=== PATIENT | male | born 1930 | race Caucasian/White ===

== ENCOUNTER 2016-12-30 08:36 | Day surgery (SDC) | payer MEDICARE ==
--- NOTE | 2016-12-25 15:08 | PCM.ANEPRE ---
Anesthesia Pre-Op Review Reason for Review: FYI- ef 25%, platelet count 62 Anesthesia Recommendations: Proceed with Procedure Additional Comments This patient was put on hold in October until evaluation done by booth cashier given his history of an abnormal Myocardial pefusion Study on 11/07/16 as well as an EF of 25% from cardiomyopathy. Indeed, the patient was seen by Dr Espinoza on October, who recommended that the patient's TURBT proceed without angiogram. Of note, the patient was given an anesthetic in 2014, presumably with an LMA that he tolerated well. Panfilo Manzanares MD Dec 25, 2016 15:08
[2016-12-30] VITALS (13 sets, daily range): BP systolic 89–135; BP diastolic 41–66; PULSE 60–70; RESP 8–18; O2SAT 90–95
[~2016-12-30] VITALS: Ht 165.1 cm; Wt 91.7 kg
--- NOTE | 2016-12-30 06:52 | PCM.HPANE ---
Patient Data Surgeon Admitting Provider: Attending Provider:Nelson Bustamante MD Primary Care Physician:Tanvir Sherman MD Other Provider:[facility] Reason for Visit Bladder Cancer Ht/WT & BMI Height (Feet): 5 Height (Inches): 5.00 Weight (Kilograms): 89.810 Body Mass Index 32.00 Allergies Coded Allergies: Sulfa (Sulfonamide Antibiotics) (Verified Allergy, Severe, increased temp , swollen legs, fatigue, 11/14/16) nitrofurantoin (Verified Allergy, Unknown, Pyrexia, 11/14/16) High Fever Past Anesthesia History Anesthesia History: Denies:: Abnormal Airway, Anesthesia Reactions, Difficult Intubation, Fam Anesthesia Reaction, Fam Malignant Hypertherm, Malignant Hyperthermia Diabetes History Hx Diabetes?: No MRSA MRSA: No Medications Blood Thinner: Aspirin, Plavix Hypertension Medication: Yes Home Meds Incl Beta Trini: Yes Reported Medications Aspirin 81 Mg Djkblv68 Mg PO DAILY Ref 0 11/14/16 Clopidogrel 75 Mg Hecoxo63 Mg PO DAILY Ref 0 11/14/16 Gabapentin 100 Mg [id number] Mg PO BID 30 Days Ref 0 11/14/16 Metoprolol Tartrate 25 Mg Rxowoy54 Mg PO BID 30 Days Ref 0 11/14/16 Potassium Chloride ER 8 Meq Tablet8 Meq PO BID Ref 0 TAKE WITH FOOD 11/14/16 Furosemide 20 Mg Tab20 Mg PO BID 30 Days Ref 0 11/14/16 Levothyroxine 200 Mcg Wszuwf706 Mcg PO DAILY Ref 0 11/14/16 Benazepril 10 Mg Tablet5 Mg PO DAILY 11/14/16 Ranitidine 300 Mg Dhzmarp647 Mg PO DAILY Ref 0 11/14/[address] 40 Mg Tablet.dr40 Mg PO HS Ref 0 11/14/16 Tamsulosin (Flomax)0.4 Mg Capsule0.4 Mg PO HS Ref 0 11/14/16 Trazodone 50 Mg Ykatdx13 Mg PO HS Ref 0 11/14/16 Rosuvastatin Calcium (Crestor)20 Mg Gjvczl63 Mg PO HS 30 Days Ref 0 11/14/16 History History of ENT Problems?: No HEENT History: Positive for:: Cataracts (surgically removed ) Hearing Problem Denies:: Abnormal Airway Difficult Intubation Dysphagia Sinus Problem Hx of Heart Problems?: Yes Cardiovascular History: Positive for:: Atrial Fibrillation Cardiac Surgery (X2, CABG, PM/ICD) Chest Pain Edema Heart Murmur Hypertension Pacemaker Valvular Heart Disease Denies:: AICD Congestive Heart Failure Irregular Heartbeat Thrombophlebitis Hx of Respiratory Problem?: No Respiratory History: Positive for:: COPD Chest Surgery (CABG 1994, 1997) Pneumonia (2012) Denies:: Asthma Cough Dyspnea Hemoptysis Oxygen Administration Tuberculosis Use of C-PAP Machine Hx Neurologic Problems?: No Neurological History: Denies:: Alzheimer's Disease CVA Dementia Dizziness Headaches Parkinson's Disease Seizures Hx of GI Problems?: Yes Gastrointestinal History: Positive for:: Gastrointestinal Bleeding Heartburn Hiatal Hernia Denies:: Cirrhosis Diverticulitis Gastroesphageal Reflux Hepatitis Rectal Bleeding Other GI Pertinent History: hx of colon cancer- colectomy Hx of Problems?: Yes Genitourinary History: Denies:: HX of Hemodialysis Kidney Stones Urinary Tract Infection HX of Peritoneal Dialysis: No Other Pertinent History: bladder tumors current admission problem Male Hx: Denies:: Prostate Problems Scrotal Mass Testicular Surgery Skin History: Denies:: History Skin Disorders? (PRE CANCEROUS LESIONS) Pressure Ulcers Hx Musculoskeletal Problems?: Yes Musculoskeletal History: Positive for:: Back Injury (SURGERY 2015- February) Denies:: Joint Replacement Musculoskeletal Trauma Hx of Psycho/Social Problems?: No Psycho Social History: Denies:: Anxiety Bipolar Disorder Hx Depression Hx Surgeries?: Yes (colectomy, pacemaker) Hx Any Other Health Problems?: Yes Other History: Positive for:: Cancer (bladder and colon) Hospitalization Thyroid Disease Denies:: Endocrine Disease History Blood Transfusions: Positive for:: Blood Transfusions Denies:: Blood Transfuse Reaction Hx Diabetes: No Hx Alcohol Use: Yes (CASUAL, OCCASIONAL)Hx Substance Use: No Smoking Status: Former Smoker Have You Smoked inLast 12 mo: No (quit 1977) Stop/Bang S-Snoring: Do You Snore Loudly: No T-Tired: feel tired, fatigued: No O-Obsered: Observed not breath: No P-Blood Pressure: treated: Yes B- Body Mass Index > 35 kg/m2: No A- Age over 50: Yes N- Neck Large Circumference: No G- Gender Male: Yes DARIUS Total Score: 3 Risk Assessment Category Category 1A: Patient has history of documented sleep apnea, and HAS NOT received any narcotic, sedative or anesthesia administration during this stay. Category 1B: Patient has history of documented sleep apnea, and HAS received any narcotic , sedative or anesthesia administration during this stay Category 2: Patient has SUSPECTED Obstructive Sleep Apnea, and HAS received any narcotic , sedative or anesthesia administration during this stay. Category 3: Patient has SUSPECTED Obstructive Sleep Apnea and HAS NOT received narcotic, sedative or anesthesia administration during this stay. Category 4: Outpatient in Procedural Areas with known sleep apnea or who screen positive for High Risk via the STOP/BANG questionnaire. Exam Exam General Appearance: Alert, Oriented X3, Cooperative HEENT/AIRWAY: MP 2, Neck Movement (thick, from), Mouth Opening (upper dentures) Lungs: Clear to Auscultation Heart: Exam Unremarkable Plan Impression Patient chart reviewed, patient interviewed and anesthestic plan with risks, benefits, and alternatives discussed, and informed consent obtained. NPO Status: 05/07@2100 ASA Physical Status: ASA3 Severe Disease Anesthetic Plan: GA Bene/Risks/Altern/Consents: Yes HP Complete Prior to Induction: Yes Other RA SPO2 = 90% increases to 94% after coughing. This is in line with his prior admission for surgery one year ago. Will proceed. Panfilo Manzanares MD Dec 30, 2016 06:52
[~2016-12-30 08:36] MED LIST: ASPI-973 PO; Acetaminophen IV 1,000 MG in IV Premix 1 EACH IV ONE; Acetaminophen IV 1,000 mg IV ONE; CLOP75TA28 PO; CRES20T PO; CeFAZolin 2 Gm/50 mL D5W IV Premix IV ONE; CeFAZolin Inj 2 GM in IV Premix 1 EACH IV ONE; FUR20 PO; GABA-500 PO; LEVO200T6 PO; Lactated Ringer's 1,000 ML IV ONE; METO25TA6 PO; Mitomycin Inj 20 MG in Syringe 1 EACH IRRIGATION ONE; NC8176 PO; PANT40TA3 PO; POTA8TAB8 PO; RANI300C PO; TAMS0.4C98 PO; TRAZ-115 PO
[2016-12-30] MEDS ORDERED: fentaNYL-PF 50 mCg/mL 2 mL Inj ONE (08:37)
[2016-12-30] MEDS ORDERED: EPHEDrine Sulfate 50 mg/mL Inj IM PRN (10:45)
[2016-12-30] MEDS ORDERED: Dexamethasone 4 mg/mL Inj IVPUSH PRN (10:45)
[2016-12-30] MEDS ORDERED: Lactated Ringer's 500 ML IV PRN (10:45)
[2016-12-30] MEDS ORDERED: Lactated Ringer's 1,000 ML IV SCH (10:45)
[2016-12-30] MEDS ORDERED: EPHEDrine Sulfate 50 mg/mL Inj IVPUSH PRN (10:45)
[2016-12-30] MEDS ORDERED: hydrALAZINE 20 mg/mL Inj IVPUSH PRN (10:45)
[2016-12-30] MEDS ORDERED: Phenylephrine 10,000 mCg/mL Inj IVPUSH PRN (10:45)
[2016-12-30] MEDS ORDERED: Ondansetron 2 mg/mL 2 mL Inj IVPUSH PRN (10:45)
[2016-12-30] MEDS ORDERED: HYDROmorphone 1 mg/mL Inj IVPUSH PRN (10:45)
[2016-12-30] MEDS ORDERED: Labetalol 5 mg/mL 4 mL Inj IV PRN (10:45)
[2016-12-30] MEDS ORDERED: fentaNYL-PF 50 mCg/mL 2 mL Inj IVPUSH PRN (10:45)
[2016-12-30] MEDS ORDERED: hydrOXYzine Inj 25 MG/1 mL SDV IM PRN (10:45)
[2016-12-30] MEDS ORDERED: Atropine 0.4 mg/mL Inj IVPUSH PRN (10:45)
[2016-12-30] MEDS ORDERED: Belladonna Alk-Opium 60 mg Rectal Suppository RECTAL ONE (10:47)
[2016-12-30 12:18] LABS: APPEARANCE,URINE HAZY (CLEAR,HAZY); COLOR,URINE STRAW (YELLOW); OCCULT BLOOD,URINE TRACE (NEGATIVE); PH,URINE 7.5 (5.0-8.0); UROBILINOGEN,URINE NORMAL (NORMAL); YEAST,URINE FEW (NONE SEEN)
--- NOTE | 2016-12-30 12:47 | PCM.ANEP1 ---
Post Anesthesia Phase 1 PACU Phase 1 Assessment Vital Signs Vital Signs Date Time Temp Pulse Resp B/P Pulse Ox O2 Delivery O2 Flow Rate FiO2 12/30/16 12:35 61 16 90/41 95 Nasal Cannula 2 12/30/16 11:59 90 Nasal Cannula 2 12/30/16 11:57 60 16 89/41 93 Room Air 12/30/16 11:50 36.5 65 18 106/47 92 Nasal Cannula 3 12/30/16 11:44 61 120/45 92 Nasal Cannula 2 12/30/16 11:41 36.3 61 11 113/43 95 Nasal Cannula 4 12/30/16 11:35 65 15 131/58 93 Nasal Cannula 4 12/30/16 11:30 66 14 123/58 95 Nasal Cannula 4 12/30/16 11:25 64 12 135/62 91 Nasal Cannula 3 12/30/16 11:20 70 8 126/55 93 Nasal Cannula 3 12/30/16 11:18 37.1 68 9 129/66 91 Nasal Cannula 2 12/30/16 09:29 37.2 64 12 97/47 91 Room Air Anesthetic Administered: GA Level of Alertness: Awake, talking ASHFORD's with Equal Strength: Yes Pain: No Nausea or Vomiting: No Oxygen Delivery: Room Air Lungs: Normal Air Movement Panfilo Manzanares MD Dec 30, 2016 12:47
--- NOTE | 2016-12-30 16:11 | PCM.ANEP2 ---
Post Anesthesia Evaluation ASA/CMS Post Anesthesia VS in Patient's Normal Range?: Yes Resp Stable; Airway Patent?: Yes CV Function & Hydration Stable: Yes Mental Status Recovered?: Yes Pain control Satisfactory?: Yes N/V Control Satisfactory?: Yes Panfilo Manzanares MD Dec 30, 2016 16:11
--- NOTE | 2016-12-31 08:08 | OP ---
[address] [address] OPERATIVE REPORT PATIENT: TANK MENDIOLA : 1930 MR#: [id number] ADMIT: 12/30/2016 JOB ID: [id number] DATE OF SURGERY: 12/30/2016 PREOPERATIVE DIAGNOSIS(ES): 1. Recurrent transitional cell carcinoma of the bladder (distal trigone floor and right anterior wall and bladder neck). 2. Bladder neck contracture. POSTOPERATIVE DIAGNOSIS(ES): 1. Recurrent transitional cell carcinoma of the bladder (distal trigone floor and right anterior wall and bladder neck). 2. Bladder neck contracture. OPERATION PERFORMED: 1. Transient urethral resection of bladder neck contracture. 2. Transurethral resection of bladder tumor. 3. Instillation of mitomycin-C (20 mg in 20 cc normal saline). SURGEON: Nelson Bustamante MD FINDINGS: Penile urethra normal. Bulbar urethra had approximately a 16-Malian annular stricture which was gently dilated and passed with the 25-Malian resectoscope. The external sphincter was intact. Prostate status post TUR and nonobstructing. The bladder neck, however, was fixed and required resection to gain access to the right bladder neck and anterior wall. The tumor was of a spreading nature with a more central solid appearance at the right distal trigone and floor. PROCEDURE SUMMARY: The patient was positioned supine, was administered general anesthetic. He was then repositioned in semi-lithotomy, and the lower abdomen, genitalia, and groin were prepped and draped in sterile fashion. A 25-Malian Gyrus resectoscope was then passed in the lower urinary tract, with the findings as described above. The sheath was then fitted with a resecting loop and necessary TUR bladder neck contracture was conducted. Further, a large-scale superficial resection of the spreading papillary tumor was conducted. Much of those regions did not produce reasonable tissue for examination. The more central portion as noted above was, however, resected and submitted in total, with the remainder of the tissue for gross and microscopic examination. Careful inspection revealed excellent hemostasis. The bladder contents were rinsed two additional times to remove any cellular debris or further tumor. Final inspection revealed excellent hemostasis and no retained tissue. The bladder was left partially filled. The resectoscope was removed. A 20-Malian Tang catheter was then inserted, the balloon inflated to 5 cc and the contents of bladder were drained, then 20 mg of mitomycin-C suspended in 20 cc of normal saline were then instilled into the bladder for an anticipated 2-hour postoperative retention.
--- NOTE | 2017-01-01 10:41 | PATH ---
SURGICAL PATHOLOGY Attending Physician:Nelson Bustamante MD CASE STATUS: Signed Out PATIENT NAME: TANK MENDIOLA PID: [id number] : 1930 DATE COLLECTED:12/30/2016 00:00 SPECIMEN: Bladder Neck CLINICAL HISTORY: BLADDER CANCER 1). BLADDER NECK FINAL DIAGNOSIS: 1.TISSUE FROM URINARY BLADDER NECK (TRANSURETHRAL RESECTION): PAPILLARY UROTHELIAL CARCINOMA, HIGH GRADE. FOCAL AREAS OF FLAT UROTHELIAL CARCINOMA IN SITU PRESENT. NEGATIVE FOR INVASION OF LAMINA PROPRIA. MUSCULARIS PROPRIA TISSUE PRESENT AND NEGATIVE FOR MALIGNANCY. Case reviewed by Dr Chad Madden who agrees with the diagnosis. ICD10 CODE C67.5 GROSS DESCRIPTION: The specimen is received in one formalin filled container labeled with the patient's name, sublabeled "bladder neck" and consists of multiple portions of tissue which aggregate to 2.0 x 1.5 x 0.5 CM. The specimen is entirely submitted in 2 cassettes. 12/31/2016 [facility] MICRO DESCRIPTION: See diagnosis. ICD-9 CODES: CPT CODES: 01549 Electronically Signed Out Minh Schafer MD [facility] [address], [place] [address] Technical component performed at [facility], [address] [place] [address] Ave[address], [place], [address]
[2017-02-12] MEDS ORDERED: POTA8TAB8 PO (11:54)
[2017-02-12] MEDS ORDERED: FURO40TA4 PO (11:54)
[2017-02-27] MEDS ORDERED: PRE20 PO (12:13)
[2017-02-27] MEDS ORDERED: ASPI-973 PO (12:13)
[2017-02-27] MEDS ORDERED: LORA0.5T PO (12:13)
[2017-04-15] MEDS ORDERED: PRD5T PO (14:45)
== END 2016-12-30 23:59 | disposition home or self-care (01) ==
LOC: SAS 08:36
PROVIDERS: ATTEND Specialist
DX: C67.5 Malignant neoplasm of bladder neck (principal); I10 Essential (primary) hypertension; I48.91 Unspecified atrial fibrillation; J44.9 Chronic obstructive pulmonary disease, unspecified; K21.9 Gastro-esophageal reflux disease without esophagitis; K44.9 Diaphragmatic hernia without obstruction or gangrene; R12 Heartburn; Z95.0 Presence of cardiac pacemaker; Z79.82 Long term (current) use of aspirin; Z79.899 Other long term (current) drug therapy; Z87.891 Personal history of nicotine dependence
CPT/HCPCS: 52240; 52500; 81000; 87086; J0131; J0690; J3010; J7120; J9280

== ENCOUNTER 2016-12-31 16:07 | Inpatient (IN) | payer MEDICARE ==
[2016-12-31] VITALS (8 sets, daily range): BP systolic 82–112; BP diastolic 42–67; PULSE 72–86; RESP 16–20; O2SAT 92–95
[~2016-12-31] VITALS: Ht 165.1 cm; Wt 95.0 kg
[~2016-12-31 16:07] MED LIST changes: -Acetaminophen IV 1,000 MG in IV Premix 1 EACH IV ONE; -Acetaminophen IV 1,000 mg IV ONE; -CeFAZolin 2 Gm/50 mL D5W IV Premix IV ONE; -CeFAZolin Inj 2 GM in IV Premix 1 EACH IV ONE; -Lactated Ringer's 1,000 ML IV ONE; -Mitomycin Inj 20 MG in Syringe 1 EACH IRRIGATION ONE
--- NOTE | 2016-12-31 17:59 | ED.REPORT ---
HPI-General Illness Date of Service Dec 31, 2016 ED Provider: Dr. Perez Pt is an 86 y/o male w/ a hx of CAD, HTN, A-fib, stage IV colon CA in remission , bladder CA, presenting to the ED with family c/o generalized weakness onset today. The patient had a cancerous tumor in his bladder and had a procedure yesterday to have it removed by urologist Dr. Bustamante and today went in to have his catheter replaced. His family was concerned that he seemed sluggish and weak today and brought him in. They also noticed his BP was in the 60s. He has also been having gross hematuria since the procedure which may be larger than expected from the procedure. His blood pressure normally runs at about 96 systolic. Pt denies CP, SOB, lightheadedness, fever, chills. Nursing Notes Stated Complaint: HYPOTENSION,BLOOD LOSS,S/P BLADDER SURGERY Chief Complaint: General Complaint Nursing Notes Reviewed: Yes Allergies: Coded Allergies: Sulfa (Sulfonamide Antibiotics) (Verified Allergy, Severe, increased temp , swollen legs, fatigue, 11/14/16) nitrofurantoin (Verified Allergy, Unknown, Pyrexia, 11/14/16) High Fever Scheduled Aspirin (Aspirin) 81 Mg Tablet 81 MG PO DAILY Benazepril (Benazepril) 10 Mg Tablet 5 MG PO DAILY Clopidogrel (Clopidogrel) 75 Mg Tablet 75 MG PO DAILY Furosemide (Furosemide) 20 Mg Tab 20 MG PO BID Gabapentin (Gabapentin) 100 Mg Capsule 100 MG PO BID Levothyroxine (Levothyroxine) 200 Mcg Tablet 200 MCG PO DAILY Metoprolol Tartrate (Metoprolol Tartrate) 25 Mg Tablet 50 MG PO BID Pantoprazole DR (Pantoprazole DR) 40 Mg Tablet.dr 40 MG PO HS Potassium Chloride ER (Potassium Chloride ER) 8 Meq Tablet 8 MEQ PO BID TAKE WITH FOOD Ranitidine (Ranitidine) 300 Mg Capsule 300 MG PO DAILY Rosuvastatin Calcium (Crestor) 20 Mg Tablet 20 MG PO HS Tamsulosin (Flomax) 0.4 Mg Capsule 0.4 MG PO HS Trazodone (Trazodone) 50 Mg Tablet 50 MG PO HS General Time Seen by MD: 17:57 Chief Complaint Weakness Hx Obtained From: Patient, Other family... Arrived By: Walk-in Sudden in Onset?: No Onset Occurred: 5 - 8 hours ago Symptom Duration: Since onset Severity: Current: No pain currently Severity: Maximum: No pain Recent Healthcare: Recent doctor visit, Recent testing, Previous diagnosis, Previous surgery Similar Sx Previous: Yes Past Medical History Past Medical History Notes: Oncologist Dr. Altamirano Recent left SFA arthrectomy on 07/27/2015 Past Medical History Oligometastatic colon cancer (in remission following palliative treatment at 2007) h/o Bladder cancer Coronary artery disease Hypertension Peripheral vascular disease Esophageal spasm Esophagitis Hypothyroidism GERD BPH Gastritis A-fib Past Surgical History CABG 4x hernia surgeries Removal of bening heart tumor Back surgery Fem pop bypass (along with right HOPPER FILLER endarterectomy, popliteal endarterectomy November 2013) Left SFA arthrectomy 07/27/2015 Colon resection x2 Vasectomy Cardiac stent Cystoscopy Bladder tumor removal Reports: Pacemaker insertion Smoking History Former Smoker Social History Other Social History: Local resident Ambulatory Status Independent Review of Systems Full Review of Systems Constitutional: Reports: Weakness - generalized, Denies: Chills, Fever Respiratory: Denies: Shortness of breath Cardiovascular: Denies: Chest pain Male: Reports Hematuria Complete sys rev & neg: except as marked. Physical Exam Vital Signs Vital Signs Date Time Temp Pulse Resp B/P Pulse Ox O2 Delivery O2 Flow Rate FiO2 12/31/16 19:21 82 94/42 12/31/16 18:26 86 95/42 12/31/16 18:06 81 20 83/46 95 12/31/16 17:25 37.3 79 18 82/49 93 Initial VS: Reviewed, Vital signs abnormal Head / Eyes: Atraumatic, Normocephalic, PERRL ENT: Mucous membranes moist, Conjunctiva normal, No scleral icterus Neck: Supple, Full range of motion Respiratory: Breath sounds normal, Clear to auscultation, No respiratory distress Cardiovascular: Regular rate & rhythm, Heart sounds normal, Intact distal pulses Extremities: Vascular intact, Neuro intact, No swelling, No tenderness Neurologic: Alert, Oriented, Nonfocal Psychiatric: Mood/affect normal, Behavior normal, Normal thought content General/Constitutional: Awake, Alert, No acute distress, Cooperative Appearance / Presentation: Positive: Pale Abdomen: Atraumatic, Soft Mild bilateral lower abdominal tenderness Gross dark maroon blood in Tang bag Skin: Atraumatic, No rash, Warm, Dry Pale Interpretation & Diagnostics Lab Results Interpretation Result Diagram: 12/31/16174412/31/161744 Test 12/31/16 17:45 12/31/16 18:49 White Blood Count 12.8th/mm3 (3.8-10.1) Red Blood Count 3.77mil/mm3 (4.40-5.80) Hemoglobin 9.6g/dL (13.8-17.2) Hematocrit 29.9% (41.0-50.0) Mean Corpuscular Volume 79.3fL (81-100) Mean Corpuscular Hemoglobin 25.5pg (27.0-35.0) Mean Corpuscular Hemoglobin Concent 32.1% (32.0-37.0) Red Cell Distribution Width 19.7% (12.3-15.4) Platelet Count 55bil/L (150-400) Neutrophils (%) (Auto) 57.2% (40-74) Lymphocytes (%) (Auto) 13.7% (14-46) Monocytes (%) (Auto) 27.5% (4-12) Eosinophils (%) (Auto) 0.2% (0-5) Basophils (%) (Auto) 0.1% (0-3) Sodium Level 128mEq/L (134-144) Potassium Level 5.4mEq/L (3.5-5.2) Chloride Level 92mEq/L (97-108) Carbon Dioxide Level 23mmol/L (18-29) Blood Urea Nitrogen 33mg/dL (8-27) Creatinine 2.24mg/dL (0.76-1.27) Estimat Glomerular Filtration Rate 30mL/min (>59) Glucose Level 108mg/dL (60-99) Calcium Level 8.1mg/dL (8.5-10.1) Total Bilirubin 0.3mg/dL (0.0-1.2) Aspartate Amino Transf (AST/SGOT) 19U/L (0-50) Alanine Aminotransferase (ALT/SGPT) 9U/L (0-44) Alkaline Phosphatase 60U/L (25-160) Total Protein 6.5g/dL (6.4-8.4) Albumin 3.4g/dL (3.4-5.0) Hold Chi Top Tube Received (Received) Prothrombin Time 12.2sec (8.1-12.5) Prothromb Time International Ratio 1.14ratio Re-Eval/Medical Decision Time of Eval: 19:17 Patient Status: Condition improved Re-Evaluation/Progress Note: Pt rechecked. Pt informed of need for admission. Pt understands and agrees with plan for admission. All questions addressed. Consultation #1: Referral / Consult Name: Janet Swan MD Consulted With: Hospitalist Call Returned at: 19:23 Orderly: Will see patient, Agrees with eval, Agrees with plan, Accepts admit Note: Case discussed. Consultation #2: Referral / Consult Name: Nelson Bustamante MD Consulted With: Urology Call Returned at: 19:27 Orderly: Will see patient, Agrees with eval, Agrees with plan Note: Will see the patient tomorrow. Counseled Regarding: Diagnosis, Lab results, Need for admission Discharge & Departure Primary Impression: KEVIN (acute kidney injury) Additional Impressions: Anemia Anemia type: unspecified type Qualified Code: D64.9 - Anemia, unspecified Hyponatremia Hyperkalemia Disposition: ADMITTED TO HOSPITAL Discharge Condition All VS Reviewed: Yes Condition: Stable Referrals: Tanvir Sherman MD (PCP) Art[place]ruce Attestation Portions of this note were transcribed by Matteo Gonzalez. I, Dr. Perez personally performed the history, physical exam and medical decision-making; I reviewed and confirmed the accuracy of the information in the transcribed note. Signed by Jeanne Stveens, 12/31/16 - 1929 copies to: Tanvir Sherman MD, Kirk H MD Dec 31, 2016 17:59 MATTEO GONZALEZ Dec 31, 2016 19:18
[2016-12-31 18:00] LABS: BASOPHILS % (AUTO) 0.1 % (0-3)
[2016-12-31 18:12] LABS: EOSINOPHILS % (AUTO) 0.2 % (0-5); MONOCYTES % (AUTO) 27.5 % (4-12); Mean Corpuscular Hemoglobin 25.5 pg (27.0-35.0); Mean Corpuscular Volume 79.3 fL (81-100); NEUTROPHILS % (AUTO) 57.2 % (40-74); Platelet Count 55 bil/L (150-400)
[2016-12-31 19:26] LABS: INR 1.14 ratio
[2016-12-31] MEDS ORDERED: Ondansetron 2 mg/mL 2 mL Inj IVPUSH PRN ×2 (20:05→20:40)
[2016-12-31] MEDS ORDERED: Alum-Mag Hydrox-Simeth 30 mL Suspension PO PRN (20:05)
[2016-12-31] MEDS ORDERED: Polyethylene Glycol (PEG) 17 Gm Powder PO PRN (20:40)
--- NOTE | 2016-12-31 20:58 | PCM.HPMED ---
Subjective Date of Service Dec 31, 2016 Primary Provider: Admitting Physician: Janet Swan MD Primary Care Physician: Tanvir Sherman MD Attending Physician: Janet Swan MD Admit Status: From the Emergency Department, Full Admit, Remote Telemetry Chief Complaint: Gross hematuria after bladder procedure yesterday History of Present Illness: This is an 86-year-old male who has a history of coronary artery disease A. fib hypertension stage IV colon cancer in remission bladder cancer who presented today with gross hematuria. He had a procedure done yesterday by Dr. Nelson Bustamante. This was a procedure to treat similarly residual bladder cancer with bladder. After that he went home and started having significant amount of bloody urine and today went into the office and had a large tube placed for drainage and continues to have some gross hematuria. He denies any chest pain shortness of breath or lightheadedness. He does note that his systolic blood pressure typically runs around 96. He denies any alteration in bowel movements. He also was found to have renal insufficiency on today's lab with a creatinine of 2.2 and a creatinine previously less than 1.0. Review of Systems: He denies any fevers chills all other review of systems are negative except for as in history of present illness Allergies Coded Allergies: Sulfa (Sulfonamide Antibiotics) (Verified Allergy, Severe, increased temp , swollen legs, fatigue, 11/14/16) nitrofurantoin (Verified Allergy, Unknown, Pyrexia, 11/14/16) High Fever Home Medications Scheduled Aspirin (Aspirin) 81 Mg Tablet 81 MG PO DAILY Benazepril (Benazepril) 10 Mg Tablet 5 MG PO DAILY Clopidogrel (Clopidogrel) 75 Mg Tablet 75 MG PO DAILY (. Patient has been off Plavix for a week prior to his procedure) Furosemide (Furosemide) 20 Mg Tab 20 MG PO BID Gabapentin (Gabapentin) 100 Mg Capsule 100 MG PO BID Levothyroxine (Levothyroxine) 200 Mcg Tablet 200 MCG PO DAILY Metoprolol Tartrate (Metoprolol Tartrate) 25 Mg Tablet 50 MG PO BID Pantoprazole DR (Pantoprazole DR) 40 Mg Tablet.dr 40 MG PO HS Potassium Chloride ER (Potassium Chloride ER) 8 Meq Tablet 8 MEQ PO BID TAKE WITH FOOD Ranitidine (Ranitidine) 300 Mg Capsule 300 MG PO DAILY Rosuvastatin Calcium (Crestor) 20 Mg Tablet 20 MG PO HS Tamsulosin (Flomax) 0.4 Mg Capsule 0.4 MG PO HS Trazodone (Trazodone) 50 Mg Tablet 50 MG PO HS PMH Past Medical History Oligometastatic colon cancer (in remission following palliative treatment at 2007) h/o Bladder cancer Coronary artery disease Hypertension Peripheral vascular disease Esophageal spasm Esophagitis Hypothyroidism GERD BPH Gastritis A-fib Past Surgical History CABG 4x hernia surgeries Removal of bening heart tumor Back surgery Fem pop bypass (along with right FUSING MACHINE FEEDER endarterectomy, popliteal endarterectomy November 2013) Left SFA arthrectomy 07/27/2015 Colon resection x2 Vasectomy Cardiac stent Cystoscopy Bladder tumor removal Reports: Pacemaker insertion Family History No significant family history for cardiovascular disease Social History Hx Alcohol Use: Yes (CASUAL, OCCASIONAL) Hx Substance Use: No Hx Tobacco Use: No Smoking Status: Former Smoker Living Arrangement: with Family Exam Vital Signs Vital Sign - Last Date Time Temp Pulse Resp B/P Pulse Ox O2 Delivery O2 Flow Rate FiO2 12/31/16 20:41 36.8 80 18 104/42 94 Nasal Cannula 2 Exam Constitutional: Pleasant elderly man in no acute distress Head: Normocephalic atraumatic Eyes: PERRLA DC EOMI Mouth: No lesions Neck: No adenopathy Chest: Clear to auscultation Heart: Regular rate and rhythm S1-S2 Abdomen: Soft nontender bowel sounds present Extremities bilateral lower extremity edema Skin: No rashes Psych: Mood and affect are appropriate Neuro: Alert and oriented 3, motor and sensory are intact bilaterally Lab and Diagnostics Labs Laboratory Tests 72 Hours Test 12/31/16 17:45 12/31/16 18:49 White Blood Count 12.8th/mm3 (3.8-10.1) Red Blood Count 3.77mil/mm3 (4.40-5.80) Hemoglobin 9.6g/dL (13.8-17.2) Hematocrit 29.9% (41.0-50.0) Mean Corpuscular Volume 79.3fL (81-100) Mean Corpuscular Hemoglobin 25.5pg (27.0-35.0) Mean Corpuscular Hemoglobin Concent 32.1% (32.0-37.0) Red Cell Distribution Width 19.7% (12.3-15.4) Platelet Count 55bil/L (150-400) Neutrophils (%) (Auto) 57.2% (40-74) Lymphocytes (%) (Auto) 13.7% (14-46) Monocytes (%) (Auto) 27.5% (4-12) Eosinophils (%) (Auto) 0.2% (0-5) Basophils (%) (Auto) 0.1% (0-3) Sodium Level 128mEq/L (134-144) Potassium Level 5.4mEq/L (3.5-5.2) Chloride Level 92mEq/L (97-108) Carbon Dioxide Level 23mmol/L (18-29) Blood Urea Nitrogen 33mg/dL (8-27) Creatinine 2.24mg/dL (0.76-1.27) Estimat Glomerular Filtration Rate 30mL/min (>59) Glucose Level 108mg/dL (60-99) Lactic Acid Level 1.4mmol/L (0.4-2.0) Calcium Level 8.1mg/dL (8.5-10.1) Total Bilirubin 0.3mg/dL (0.0-1.2) Aspartate Amino Transf (AST/SGOT) 19U/L (0-50) Alanine Aminotransferase (ALT/SGPT) 9U/L (0-44) Alkaline Phosphatase 60U/L (25-160) Troponin T 0.034ug/L (0.0-0.011) Total Protein 6.5g/dL (6.4-8.4) Albumin 3.4g/dL (3.4-5.0) Hold Chi Top Tube Received (Received) Prothrombin Time 12.2sec (8.1-12.5) Prothromb Time International Ratio 1.14ratio Result Diagram: 12/31/16174412/31/161744 12-lead ECG Pending at the time of this dictation Assessment & Plan # Significant gross hematuria after urological procedure, acute, present on admission Check serial hematocrits Urologist is to see in a.m. Type and hold for PRBCs IV fluid hydration # Acute anemia, present on admission Secondary to above Check serial hematocrits Technical for PRBCs # Acute renal failure, acute, present on admission IV fluid hydration and recheck in a.m. # History of coronary artery disease Given acute anemia we will go ahead and proceed with checking serial troponins # DVT prophylaxis We will use SCDs and avoid subcutaneous anticoagulation given bleeding #CODE status Did discuss with the patient wishes full code Resuscitation Status: CPR: Attempt Resuscitation Time spent 60 minutes Janet Swan MD Dec 31, 2016 20:58
[2016-12-31 21:37] LABS: INR 1.1 ratio
[2016-12-31 21:57] LABS: Magnesium 2.2 mg/dL (1.6-2.6); TROPONIN T 0.033 ug/L (0.0-0.011)
--- NOTE | 2016-12-31 22:00 | NUR ---
Admit note: Pt admitted from ER, able to slide self to bed. Alert and oriented x3. Pre-existing Tang in place upon arrival to hospital. Draining dark red urine with small clots. Denies pain. Leg bag changed to a Tang bag. Tele V paced 70s. BP upon arrival 112/67. Oriented to room and call light.
[2016-12-31] MEDS: 0.9% Sodium Chloride 1,000 ML IV SCH (22:31)
[2017-01-01] VITALS (8 sets, daily range): BP systolic 101–111; BP diastolic 51–67; PULSE 77–101; RESP 18–20; O2SAT 92–98
[2017-01-01 05:26] LABS: APPEARANCE,URINE CLOUDY (CLEAR,HAZY); COLOR,URINE BLOODY (YELLOW); OCCULT BLOOD,URINE LARGE (NEGATIVE); PH,URINE 6.5 (5.0-8.0); UROBILINOGEN,URINE NORMAL (NORMAL)
[2017-01-01] MEDS: 0.9% Sodium Chloride 1,000 ML IV SCH ×3 (06:18→22:04)
[2017-01-01 06:43] LABS: BASOPHILS % (AUTO) 0.1 % (0-3); EOSINOPHILS % (AUTO) 0.4 % (0-5); MONOCYTES % (AUTO) 28.1 % (4-12); Mean Corpuscular Hemoglobin 25.2 pg (27.0-35.0); Mean Corpuscular Volume 79.9 fL (81-100); NEUTROPHILS % (AUTO) 56.1 % (40-74); Platelet Count 49 bil/L (150-400)
--- NOTE | 2017-01-01 06:44 | NUR ---
Urine: Urine cleared up to a dark pink through the night, no clots noted in Tang tubing. >1900 mls of urine out. Pt slept well through the night, stating "this is my best night sleep in the hospital ever".
--- NOTE | 2017-01-01 08:49 | CONS ---
[address] [address] CONSULTATION REPORT PATIENT: TANK MENDIOLA : 1930 MR#: [id number] ADMIT: 12/31/2016 JOB ID: [id number] DATE OF SERVICE: NARRATIVE: The patient is an 86-year-old gentleman well known to me with past history of BPH and recurrent transitional cell carcinoma of the bladder. He underwent an otherwise uncomplicated transurethral resection of recurrent bladder tumor on December 30, 2016. I was contacted in the fabric pattern grader hours of December 31, 2016, by he and his , Toshia, with complaint of pain, gross hematuria and lack of drainage from an indwelling Tang. I evaluated him in my office at about 8 a.m., and he was in clot retention. The existing catheter was removed, and a 24-Portuguese coude tip hematuria catheter was placed. He was hand irrigated with approximately 3 L of sterile normal saline with evacuation of perhaps 400-500 cc total of clot. I strongly encouraged that he present to the emergency department that morning for an overall check and laboratory studies and possible observation/admit, and he politely declined but was willing to get a CBC with diff. Through the day I asked Dr. Altamirano to review his numbers and he was quite pleased with the platelet count of 76,000. I stayed in touch with his family during the day, and he typically runs a low systolic blood pressure but with systolic noted, measured by his daughter Maida, in the 90s, I adamantly requested he present to the emergency department. Dr. Ronnie Perez graciously evaluated the patient and found that his creatinine had bumped to 2.2 and a hemoglobin of about 9.7. Because of his age, comorbidities and acute change from his baseline renal function, he was admitted for further evaluation and management. Creatinine this morning is already down to 1.38. I am quite certain the cause of his transient acute renal failure is due to his episode of urinary retention. There is a culture still pending that was obtained immediately preoperatively when I placed the resectoscope in his bladder. Additionally, there is a urine culture pending from admission yesterday evening. I will leave discharge decision making to the [facility] team including possible indicators for transfusion of packed red cells. I will make arrangements to see him in my office Friday morning and make decisions regarding catheter removal. Pathology is still pending from bladder tumor resection December 30, 2016.
[2017-01-01] MEDS: 0.9% Sodium Chloride 250 ML IV SCH (11:18)
[2017-01-01] MEDS ORDERED: HepLOK Flush 100 unit/mL 5 mL Inj IVFLUSH PRN (11:20)
[2017-01-01] MEDS ORDERED: Sodium Chloride LOK Flush 10 mL Syringe IVFLUSH PRN ×2 (11:20)
--- NOTE | 2017-01-01 14:23 | NUR ---
Social Work-- Initial Assessment Data: See Initial Assessment. Pt is a 86 y/o male who was admitted 12/31/16 for acute kidney injury per H&P. Pts insurance is Medicare and [employer] and PCP is Norberto Sherman MD. EMR Reviewed. Pt is alert and oriented x3. GENEVA met with patient, , and daughter Maida at bedside to discuss discharge planning, SW role explained. Pt resides at home with spouse where he remains independent with ADLs. Pt does drive and does use a cane at baseline. Pt has no HH history. Pt has history of fdc at [facility]. Pt has no long term acute care registered nurse care or VA benefits. Pt states he has completed to DPOA/Advanced Directive paperwork, SW encouraged a copy to be brought to the hospital. Per nursing notes, pt has been up independent in room. No anticipated PT needs. Pt is currently on O2, which is not pt baseline. SW discussed home health, pt and family do not feel that this is needed at this time. No anticipated discharge needs. SW provided phone number and plan on white board in room. SW will continue to follow as needs arise. Assessment: Pt who is independent at baseline. Plan: Pt will likely discharge home. to transport in POV. HH not needed at this time, Pt and agreeable to this plan. SW will continue to follow. Addendum: 01/01/17 at 1434 by MARKEL LOCKWOOD SS Amended: Links added. Addendum: 01/01/17 at 1434 by MARKEL LOCKWOOD SS Dasha Lockwood, CREATIVE RECRUITER
--- NOTE | 2017-01-01 16:14 | NUR ---
Temazepam Pt requesting temazepam for sleep tonight. States that he takes 30mg PO at home to help him sleep. MD ledezma, order received. Will provide medication to pt at PRN. Addendum: 01/02/17 at 0601 by ANDRE BOCANEGRA RN temazepam given @[facility] per pt's request instead of trazodone. Pt slept throughout the night.
--- NOTE | 2017-01-01 17:14 | PCM.PNMED ---
Subjective Date of Service Jan 01, 2017 Subjective denies any new issues/complaints Exam Vital Signs Vital Sign - Last Date Time Temp Pulse Resp B/P Pulse Ox O2 Delivery O2 Flow Rate FiO2 01/01/17 12:34 37.1 85 18 101/53 98 Nasal Cannula 1.00 Intake and Output 12/31/16 12/31/16 01/01/17 Cumulative From/Thru 15:00 23:00 07:00 12/31/16 17:25 - 01/01/17 06:38 Intake Total 500 ml 1123 ml 1623 ml Output Total 1900 ml 1900 ml Balance 500 ml -777 ml -277 ml Intake Oral 200 ml 200 ml IV Total 500 ml 923 ml 1423 ml Output Urine Total 1900 ml 1900 ml # Bowel Movements 0 0 General: Alert, Oriented X3, Cooperative, No Acute Distress Eyes: Scleral Anicteric Nose: Mucous Membr Moist/[place] Mouth: Mucous Membr Moist/[place] Neck: Supple Chest & Lungs: Chest Wall Normal, Clear to auscultation & percussion Cardiovascular: Regular Rate/Rhythm Pulses: NL carotid, radial, femoral, DP, PT Abdomen: Non-tender, Non-distended, Normoactive bowel tones, Soft Extremities: No cyanosis/clubbing/edma bilat Neurological: Grossly Neurologically Intact, Normal Speech Additional Information: Tang cath in place with bloody urine in the bag IVs and Medications Medications Reviewed: Medications were reviewed in detail Lab and Diagnostics Result Diagram: 01/01/17 0845 01/01/17 0545 12-lead ECG Pending at the time of this dictation Assessment & Plan 86-year-old male who has a history of coronary artery disease A. fib hypertension stage IV colon cancer in remission bladder cancer who presented with gross hematuria. He had a procedure done one day earlier by Dr. Nelson Bustamante. This was a procedure to treat similarly residual bladder cancer with bladder. After that he went home started having significant amount of bloody urine. # Significant gross hematuria after urological procedure, acute, present on admission. ongoing - after initial drop h/h has remained stable for now - appreciate urology consult. will f/u w/ recs. further f/u likely as outpatient on Friday - Type and hold for PRBCs # Acute anemia, present on admission - Secondary to above - plan as noted above # Acute kidney injury, acute, present on admission. improving - ? if combination of pre-renal and postrenal obstruction - c/w IVF and f/u # History of coronary artery disease. stable - c/w home meds - f/u # DVT prophylaxis We will use SCDs and avoid subcutaneous anticoagulation given bleeding # Thrombocytopenia. chronic. stable - f/u - will discuss with oncology (Dr. Altamirano) in am for any further recs Dispo: possibly home tomorrow if h/h continue to remain stable and KEVIN resolve VTE Mechanical Devices: Venous Foot Pump Resuscitation Status: CPR: Attempt Resuscitation Hernando Marina Jan 01, 2017 17:14
[2017-01-01] MEDS ORDERED: Pantoprazole 40 mg ER24 Tablet PO SCH (21:00)
[2017-01-02 01:08] VITALS: BP 121/56; PULSE 74; RESP 20; O2SAT 96
[2017-01-02 05:44] VITALS: BP 124/61; PULSE 72; RESP 20; O2SAT 99
--- NOTE | 2017-01-02 06:01 | NUR ---
brown output Brown patent; drained 980mL of dark pink urine with some sediments; no clots noted. IVF infusing. tolerating diet w/o N/V. denies pain or discomfort. bed alarm on for safety.
[2017-01-02 06:28] LABS: TROPONIN T 0.01 ug/L (0.0-0.011)
[2017-01-02 07:44] VITALS: BP 121/63; PULSE 73; RESP 18; O2SAT 95
[2017-01-02 08:00] VITALS: PULSE 77
[2017-01-02] MEDS: 0.9% Sodium Chloride 1,000 ML IV SCH (08:35)
--- NOTE | 2017-01-02 10:47 | NUR ---
Social Work: Discharge Data: Pt is on day 2 of hospitalization. EMR reviewed. Pt discussed in rounds. D/C orders are in. No further d/c planning needs anticipated at this time. Assessment: Pt who is independent at baseline. Plan: Pt will d/c home today via POV. No further d/c planning needs anticipated at this time. ENVIRONMENTAL SERVICES COORDINATOR will follow if needs arise. ROBBIE Morales
[2017-01-02] MEDS: 0.9% Sodium Chloride 250 ML IV SCH (11:18)
[2017-01-02 12:12] VITALS: BP 134/66; PULSE 77; RESP 15; O2SAT 92
--- NOTE | 2017-01-02 14:38 | PCM.DIMED ---
Discharge Instructions Date of Service Jan 02, 2017 Dates of Hospitalization Dec 31, 2016 at 20:17 Discharge Diagnosis Discharge Diagnosis # Significant gross hematuria after urological procedure, acute, present on admission. Improving - after initial drop in Hgb/Hct (red blood cell count) has remained stable # Acute anemia (secondary to above), present on admission. stable # Acute kidney injury, present on admission. Resolved # History of coronary artery disease. stable # Thrombocytopenia. chronic. stable Medication Instructions Stop taking Aspirin, Plavix, Furosemide, and potassium supplement for now and instead followup with urology, Dr. Altamirano, and your primary care provider to decide if and when to resume these medications. Diet Low fat, Low Sodium, Heart Healthy Activity No restrictions Call your provider Fever or Chills, Shortness of breath, Bleeding, Chest pain Patient Instructions Seek immediate medical attention if any new or worsening signs or symptoms occur. Follow-up plan 1. Followup with urology (DR. BUSTAMANTE) at [facility] ON FRIDAY, , AT 9:00 AM. ([phone]). 2. Followup with oncology (Dr. Altamirano) in 4-5 days or sooner if needed 3. Followup with primary care provider within about one week Follow-up Provider: Nelson Bustamante MD Provider: Guillermo Zaldivar MD Mid-level Provider (F9): Tanvir Sherman MD, Masoud Jan 02, 2017 14:38
--- NOTE | 2017-01-02 16:59 | NUR ---
Discharge: Patient discharged to home @ approx 1435. Power port de-accessed by IV therapy. Telemetry removed, monitor and storage bin tender notified. Tang cath remains in place, patient to follow up 2/10 am w/Dr Bustamante for removal. Personal belongings sent home with patient. Reviewed home medication list, d/c instructions and follow up appointments. Verbalized understanding. Escorted to main entrance via wheelchair accompanied by CONTACT ACID PLANT OPERATOR HELPER.
--- NOTE | 2017-01-02 19:58 | PCM.DC.MED ---
Discharge Summary Date of Service Jan 02, 2017 Dates of Hospitalization Date of Hospital Admission Dec 31, 2016 at 20:17 Date of Discharge: Jan 02, 2017 Providers: Admitting Physician: Janet Swan MD Primary Care Physician: Tanvir Sherman MD Attending Physician: Janet Swan MD Diagnosis at Time of Discharge Diagnosis at Time of Discharge # Significant gross hematuria after urological procedure, acute, present on admission. Improving - after initial drop in Hgb/Hct (red blood cell count) has remained stable # Acute anemia (secondary to above), present on admission. stable # Acute kidney injury, present on admission. Resolved # History of coronary artery disease. stable # Thrombocytopenia. chronic. stable Consultations 1. Urology Brief History noted in H&P by Dr. Swan: This is an 86-year-old male who has a history of coronary artery disease A. fib hypertension stage IV colon cancer in remission bladder cancer who presented today with gross hematuria. He had a procedure done yesterday by Dr. Nelson Bustamante. This was a procedure to treat similarly residual bladder cancer with bladder. After that he went home and started having significant amount of bloody urine and today went into the office and had a large tube placed for drainage and continues to have some gross hematuria. He denies any chest pain shortness of breath or lightheadedness. He does note that his systolic blood pressure typically runs around 96. He denies any alteration in bowel movements. He also was found to have renal insufficiency on today's lab with a creatinine of 2.2 and a creatinine previously less than 1.0. Hospital Course # Significant gross hematuria after urological procedure, acute, present on admission. ongoing - after initial drop h/h has remained stable - appreciate urology consult. will f/u w/ recs. further f/u likely as outpatient on Friday # Acute anemia, present on admission - Secondary to above - plan as noted above # Acute kidney injury, acute, present on admission. Resolved with IVF and Tang - ? if combination of pre-renal and postrenal obstruction # History of coronary artery disease. stable - c/w home meds # Thrombocytopenia. chronic. stable - f/u with oncology (Dr. Altamirano) as outpatient by day of d/c lungs CTA bilat. Exam Vital Signs (Last) Date Time Temp Pulse Resp B/P Pulse Ox O2 Delivery O2 Flow Rate FiO2 01/02/17 12:12 37.4 77 15 134/66 92 Room Air 01/02/17 07:44 1.00 Test 12/31/16 17:45 12/31/16 18:49 12/31/16 21:06 01/01/17 04:48 Lactic Acid Level 1.4mmol/L (0.4-2.0) Hold Chi Top Tube Received (Received) Activated Partial Thromboplast Time 32.2sec (22.8-33.0) Prothrombin Time 11.8sec (8.1-12.5) Prothromb Time International Ratio 1.10ratio Magnesium Level 2.2mg/dL (1.6-2.6) Urine Color Bloody (YELLOW) Urine Appearance Cloudy (CLEAR,HAZY) Urine pH 6.5 (5.0-8.0) Urine Specific [place] 1.010 (1.003-1.035) Urine Protein 100mg/dL (NEG,TRACE) Urine Glucose (UA) Negativemg/dL (NEGATIVE) Urine Ketones Negativemg/dL (NEGATIVE) Urine Occult Blood Large (NEGATIVE) Urine Nitrite Positive (NEGATIVE) Urine Bilirubin Negative (NEGATIVE) Urine Urobilinogen Normalmg/dL (NORMAL) Urine Leukocyte Esterase Large (NEGATIVE) Urine RBC >50/hpf (0-2) Urine WBC >50/hpf (0-5) Urine Epithelial Cells Many/hpf (NONE-MOD) Urine Crystals None seen (NONE SEEN) Urine Bacteria Moderate/hpf (NONE-FEW) Urine Hyaline Casts None/lpf (NONE) Urine Granular Casts None seen (NONE SEEN) Urine Waxy Casts None seen (NONE SEEN) Urine Red Blood Cell Casts None seen (NONE SEEN) Urine White Blood Cell Casts None seen (NONE SEEN) Urine Mucus Present (None Seen) Urine Trichomonas None seen (NONE SEEN) Urine Yeast None (NONE SEEN) Urinalysis Comment None Urine Culture Reflexed Indicated Test 01/01/17 05:45 01/02/17 05:55 White Blood Count 7.4th/mm3 (3.8-10.1) Red Blood Count 3.13mil/mm3 (4.40-5.80) Mean Corpuscular Volume 79.9fL (81-100) Mean Corpuscular Hemoglobin 25.2pg (27.0-35.0) Mean Corpuscular Hemoglobin Concent 31.6% (32.0-37.0) Red Cell Distribution Width 19.6% (12.3-15.4) Platelet Count 49bil/L (150-400) Neutrophils (%) (Auto) 56.1% (40-74) Lymphocytes (%) (Auto) 14.5% (14-46) Monocytes (%) (Auto) 28.1% (4-12) Eosinophils (%) (Auto) 0.4% (0-5) Basophils (%) (Auto) 0.1% (0-3) Total Bilirubin 0.2mg/dL (0.0-1.2) Aspartate Amino Transf (AST/SGOT) 15U/L (0-50) Alanine Aminotransferase (ALT/SGPT) 6U/L (0-44) Alkaline Phosphatase 55U/L (25-160) Total Protein 5.2g/dL (6.4-8.4) Albumin 2.9g/dL (3.4-5.0) Hemoglobin 7.9g/dL (13.8-17.2) Hematocrit 26.0% (41.0-50.0) Sodium Level 142mEq/L (134-144) Potassium Level 3.7mEq/L (3.5-5.2) Chloride Level 108mEq/L (97-108) Carbon Dioxide Level 24mmol/L (18-29) Blood Urea Nitrogen 15mg/dL (8-27) Creatinine 0.55mg/dL (0.76-1.27) Estimat Glomerular Filtration Rate 150mL/min (>59) Glucose Level 87mg/dL (60-99) Calcium Level 7.5mg/dL (8.5-10.1) Troponin T 0.010ug/L (0.0-0.011) Discharge Medications Discharge Medications Benazepril (Benazepril) 10 Mg Tablet 5 MG PO DAILY (Reported) Gabapentin (Gabapentin) 100 Mg Capsule 100 MG PO BID (Reported) Levothyroxine (Levothyroxine) 200 Mcg Tablet 200 MCG PO DAILY (Reported) Metoprolol Tartrate (Metoprolol Tartrate) 25 Mg Tablet 50 MG PO BID (Reported) Pantoprazole DR (Pantoprazole DR) 40 Mg Tablet.dr 40 MG PO HS (Reported) Ranitidine (Ranitidine) 300 Mg Capsule 300 MG PO DAILY (Reported) Rosuvastatin Calcium (Crestor) 20 Mg Tablet 20 MG PO HS (Reported) Tamsulosin (Flomax) 0.4 Mg Capsule 0.4 MG PO HS (Reported) Trazodone (Trazodone) 50 Mg Tablet 50 MG PO HS (Reported) Additional med instructions Stop taking Aspirin, Plavix, Furosemide, and potassium supplement for now and instead followup with urology, Dr. Altamirano, and your primary care provider to decide if and when to resume these medications. Followup Plan Disposition: Home Follow-up plan 1. Followup with urology (DR. BUSTAMANTE) at [facility] ON FRIDAY, , AT 9:00 AM. ([phone]). 2. Followup with oncology (Dr. Altamirano) in 4-5 days or sooner if needed 3. Followup with primary care provider within about one week Discharge Diet: Low fat, Low Sodium, Heart Healthy Discharge Activity: No restrictions Patient Instructions Seek immediate medical attention if any new or worsening signs or symptoms occur. Follow-up Provider: Nelson Bustamante MD Provider: Guillermo Zaldivar MD Mid-level Provider: Tanvir Sherman MD Time spent 35 min copies to: Guillermo Zaldivar MD; Nelson Bustamante MD; Tanvir Sherman MD, Masoud Jan 02, 2017 19:58
[2017-02-12] MEDS ORDERED: FURO40TA4 PO (11:54)
[2017-02-12] MEDS ORDERED: POTA8TAB8 PO (11:54)
[2017-02-27] MEDS ORDERED: PRE20 PO (12:13)
[2017-02-27] MEDS ORDERED: ASPI-973 PO (12:13)
[2017-02-27] MEDS ORDERED: LORA0.5T PO (12:13)
[2017-04-15] MEDS ORDERED: PRD5T PO (14:45)
== END 2017-01-02 16:33 | disposition home or self-care (01) | DRG 669 ==
LOC: SED 16:07 → MPC 20:17
PROVIDERS: ADMIT Specialist; ATTEND Specialist
PROC: 0TBB8ZX Excision of Bladder, Via Natural or Artificial Opening Endoscopic, Diagnostic (ICD-10-PCS; principal; 2016-12-30)
PROC: 0TBC8ZX Excision of Bladder Neck, Via Natural or Artificial Opening Endoscopic, Diagnostic (ICD-10-PCS; 2016-12-30)
DX: D09.0 Carcinoma in situ of bladder (principal); N17.9 Acute kidney failure, unspecified; E87.1 Hypo-osmolality and hyponatremia; R31.0 Gross hematuria; D64.9 Anemia, unspecified; Y83.8 Other surgical procedures as the cause of abnormal reaction of the patient, or of later complication, without mention of misadventure at the time of the procedure; Z85.038 Personal history of other malignant neoplasm of large intestine; Z79.82 Long term (current) use of aspirin; Z95.1 Presence of aortocoronary bypass graft; Z87.891 Personal history of nicotine dependence; Z98.61 Coronary angioplasty status; Z95.0 Presence of cardiac pacemaker; N32.0 Bladder-neck obstruction